=== PATIENT | female | born 1955 | race Caucasian/White ===

== ENCOUNTER 2019-05-03 05:50 | Day surgery (SDC) | payer OTHER ==
[2019-04-29 15:08] VITALS: BMI 36.4
[~2019-05-03] VITALS: Ht 149.9 cm; Wt 84.0 kg
[2019-05-03] VITALS (7 sets, daily range): BP systolic 120–160; BP diastolic 61–77; PULSE 54–61; RESP 12–17; Ht 149.9 cm; Wt 84.0 kg
[~2019-05-03 05:50] MED LIST: AMLO5TAB4 PO; CHLO25TA2 PO; FENO145T37 PO; GLIM4TAB3 PO; LOSA100T15 PO; METO-319 PO; PIOG30TA12 PO; PRAV40TA76 PO; SITA1TAB5 PO
[2019-05-03] MEDS ORDERED: CEFAZOLIN 1 GM INJ ONE (06:49)
[2019-05-03] MEDS ORDERED: LIDOCAINE 4% (MPF) 5 ML INJ ONE (06:49)
[2019-05-03] MEDS ORDERED: GENTAMICIN 80 MG INJ ONE (06:49)
[2019-05-03] MEDS ORDERED: DEXAMETHASONE 4 MG/ML 1 ML INJ ONE (06:50)
[2019-05-03] MEDS ORDERED: CARBACHOL 0.01% 1.5 ML OPH INJ ONE (06:50)
[2019-05-03] MEDS ORDERED: EPINEPHrine 1 MG INJ ONE (06:50)
[2019-05-03] MEDS ORDERED: SOD CHLORIDE 0.9% 1,000 ML IV SCH (07:00)
[2019-05-03] MEDS ORDERED: DICLOFENAC 0.1% 2.5 ML OPH OPER SCH (07:00)
[2019-05-03] MEDS ORDERED: CYCLOPENTOLATE/PHENYLEPH 2 ML OPH OPER SCH (07:00)
[2019-05-03] MEDS ORDERED: MOXIFLOXACIN 0.5% 3 ML OPH OPER SCH (07:00)
[2019-05-03] MEDS ORDERED: TROPICAMIDE 1% 15 ML OPH OPER SCH (07:00)
[2019-05-03] MEDS ORDERED: CEFAZOLIN 1 GM INJ INJ ONE (08:30)
[2019-05-03] MEDS ORDERED: CARBACHOL 0.01% 1.5 ML OPH INJ IO ONE (08:30)
[2019-05-03] MEDS ORDERED: DEXAMETHASONE 4 MG/ML 1 ML INJ INJ ONE (08:30)
[2019-05-03] MEDS ORDERED: MIDAZOLAM 1 MG/ML 2 ML INJ ONE (08:36)
[2019-05-03] MEDS ORDERED: LIDOCAINE 100 MG SYRINGE ONE (08:37)
[2019-05-03] MEDS ORDERED: PROPOFOL 20 ML ONE (08:37)
[2019-05-03] MEDS ORDERED: ONDANSETRON 4 MG INJ IV PRN (09:00)
[2019-05-03] MEDS ORDERED: LABETALOL HCL 20MG INJ IV PRN (09:00)
[2019-05-03] MEDS ORDERED: DIPHENHYDRAMINE 50 MG INJ IV PRN (09:00)
[2019-05-03] MEDS ORDERED: HYDROmorphONE 1 MG/5 ML IV SYRINGE IV PRN ×3 (09:00)
[2019-05-03] MEDS ORDERED: hydrALAzine 20 MG INJ IV PRN (09:00)
[2019-05-03] MEDS ORDERED: FENTAnyl 50 MCG/ML VIAL IV PRN ×3 (09:00)
[2019-05-03] MEDS ORDERED: MEPERIDINE 25 MG INJ IV PRN (09:00)
[2019-05-03] MEDS ORDERED: OXYCODONE/ACETAMINOPHEN (5/325) TAB PO PRN ×2 (09:00)
[2019-05-03] MEDS ORDERED: EPHEDrine 25 MG/5 ML SYG IV PRN (09:00)
[2019-05-03] MEDS ORDERED: ALBUTEROL 0.083% (NEB) 2.5 MG/3 ML AMP HHN PRN (09:00)
[2019-05-03] MEDS ORDERED: IPRATROPIUM (NEB) 0.5 MG/2.5 ML AMP HHN PRN (09:00)
== END 2019-05-03 10:35 | disposition home or self-care (01) ==
LOC: SDS 05:50
PROVIDERS: ATTEND Ophthalmology
DX: H25.12 Age-related nuclear cataract, left eye (principal); H25.012 Cortical age-related cataract, left eye; E11.9 Type 2 diabetes mellitus without complications; I10 Essential (primary) hypertension; E78.5 Hyperlipidemia, unspecified
CPT/HCPCS: 66984; 71045; 82962; J0171; J0690; J1100; J1580; J2001; J2250; V2632; Z7512; Z7610